=== PATIENT | male | born 1970 | race Caucasian/White ===

== ENCOUNTER 2023-08-07 11:25 | Inpatient (IN) | payer OTHER ==
[2023-08-07 11:46] VITALS: BMI 29.1
[2023-08-07] MEDS ORDERED: NICOTINE POLACRILEX 2 MG GUM BUC PRN (13:31)
[2023-08-07] MEDS ORDERED: BISMUTH SUBSALICYLATE 524 MG/30 ML PO PRN (13:31)
[2023-08-07] MEDS ORDERED: ACETAMINOPHEN 325 MG TABLET (FP) PO PRN (13:31)
[2023-08-07] MEDS ORDERED: BENZONATATE 200 MG CAPSULE PO PRN (13:31)
[2023-08-07] MEDS ORDERED: MAG HYDROX/AL HYDROX/SIMETH 30 ML UNIT-DOSE CUP PO PRN (13:31)
[2023-08-07] MEDS ORDERED: NALOXONE HCL 0.4 MG/ML VIAL IM PRN (13:31)
[2023-08-07] MEDS ORDERED: IBUPROFEN 600 MG TABLET (FP) PO PRN (13:31)
[2023-08-07] MEDS ORDERED: ONDANSETRON *ODT* 4 MG TABLET SL PRN (13:31)
[2023-08-07] MEDS ORDERED: MAGNESIUM HYDROX 2400MG/30ML ORAL SUSPENSION 30 ML CUP PO PRN (13:31)
[2023-08-07] MEDS ORDERED: BENZOCAINE/MENTHOL (CHLORASEPTIC ) LOZENGE MM PRN (13:31)
[2023-08-07] MEDS ORDERED: guaiFENesin 600 MG TABLET.ER (FP) PO PRN (13:31)
[2023-08-07] MEDS ORDERED: POLYETHYLENE GLYCOL (HEALTHYLAX) 3350 17 GM PACKET PO PRN (13:31)
[2023-08-07] MEDS ORDERED: LOPERAMIDE HCL 2 MG CAPSULE PO PRN (13:31)
[2023-08-07] MEDS ORDERED: NALOXONE HCL (KLOXXADO) 8 MG SPRAY NS PRN (13:31)
[2023-08-07] MEDS ORDERED: IBUPROFEN 400 MG TABLET (FP) PO PRN (13:31)
[2023-08-07] MEDS ORDERED: cloNIDine HCL 0.1 MG TABLET PO PRN (13:35)
[2023-08-07] MEDS ORDERED: methaDONE HCL 10 MG TABLET (FOR DETOX USE ONLY) PO ONE (14:15)
[2023-08-07] MEDS ORDERED: methaDONE HCL 10 MG TABLET (FOR DETOX USE ONLY) ONE (14:23)
[2023-08-07] MEDS: hydrOXYzine PAMOATE 25 MG CAPSULE (FP) PO PRN (17:24)
[2023-08-07] MEDS: THIAMINE HCL 100 MG TABLET (FP) PO SCH (22:25)
[2023-08-07] MEDS: MELATONIN 5 MG TABLETS PO SCH (22:26)
[2023-08-08] MEDS: PRENATAL VITAMINS W/ FOLIC ACID TABLET (FP) PO SCH (09:59)
[2023-08-08] MEDS: PANTOPRAZOLE 20 MG TABLET PO SCH (09:59)
[2023-08-08] MEDS: METHOCARBAMOL 500 MG TABLET PO PRN (09:59)
[2023-08-08] MEDS: THIAMINE HCL 100 MG TABLET (FP) PO SCH (22:30)
[2023-08-08] MEDS: diazePAM 5 MG TABLET PO PRN (22:32)
[2023-08-08] MEDS: MELATONIN 5 MG TABLETS PO SCH (22:33)
[2023-08-09] MEDS ORDERED: methaDONE HCL 10 MG TABLET (FOR DETOX USE ONLY) PO ONE (10:00)
[2023-08-09] MEDS: PRENATAL VITAMINS W/ FOLIC ACID TABLET (FP) PO SCH (10:06)
[2023-08-09] MEDS: hydrOXYzine PAMOATE 25 MG CAPSULE (FP) PO PRN ×2 (10:06→22:19)
[2023-08-09] MEDS: PANTOPRAZOLE 20 MG TABLET PO SCH (10:07)
[2023-08-09] MEDS: MELATONIN 5 MG TABLETS PO SCH (22:17)
[2023-08-09] MEDS: THIAMINE HCL 100 MG TABLET (FP) PO SCH (22:18)
[2023-08-09] MEDS: diazePAM 5 MG TABLET PO PRN (22:19)
[2023-08-10 10:24] LABS: HEMATOCRIT 46.3 % (35.4-49); HEMOGLOBIN 14.8 GM/dL (11.7-16.9); MCH 27.4 pg (25.7-33.7); MCHC 32.1 g/dl (32.0-35.9); MEAN CELL VOLUME 85.4 fl (80-96); MEAN PLT VOLUME 7.7 fl (7.5-11.1); PLATELET COUNT 362 10^3/uL (134-434); RBC 5.42 M/mm3 (4.00-5.60)
[2023-08-10] MEDS: PRENATAL VITAMINS W/ FOLIC ACID TABLET (FP) PO SCH (10:25)
[2023-08-10] MEDS: METHOCARBAMOL 500 MG TABLET PO PRN (10:25)
[2023-08-10] MEDS: PANTOPRAZOLE 20 MG TABLET PO SCH (10:25)
[2023-08-10 12:22] LABS: POTASSIUM 4.4 mmol/L (3.5-5.1)
[2023-08-10 12:31] LABS: CALCIUM 9.5 mg/dL (8.5-10.1)
[2023-08-10 12:32] LABS: ALBUMIN 3.8 g/dl (3.4-5.0); BLOOD UREA NITROGEN 11.3 mg/dL (7-18)
[2023-08-10 12:35] LABS: CREATININE 1.1 mg/dL (0.55-1.3)
[2023-08-10 12:36] LABS: BILIRUBIN,TOTAL 0.4 mg/dL (0.2-1)
[2023-08-10] MEDS: THIAMINE HCL 100 MG TABLET (FP) PO SCH (22:03)
[2023-08-10] MEDS: MELATONIN 5 MG TABLETS PO SCH (22:03)
[2023-08-10] MEDS: diazePAM 5 MG TABLET PO PRN (22:03)
[2023-08-11] MEDS: PRENATAL VITAMINS W/ FOLIC ACID TABLET (FP) PO SCH (09:35)
[2023-08-11] MEDS: hydrOXYzine PAMOATE 25 MG CAPSULE (FP) PO PRN ×2 (09:35→22:39)
[2023-08-11] MEDS: PANTOPRAZOLE 20 MG TABLET PO SCH (09:35)
[2023-08-11] MEDS ORDERED: methaDONE HCL 10 MG TABLET (FOR DETOX USE ONLY) PO ONE (10:00)
[2023-08-11] MEDS: THIAMINE HCL 100 MG TABLET (FP) PO SCH (22:38)
[2023-08-11] MEDS: MELATONIN 5 MG TABLETS PO SCH (22:38)
[2023-08-12] MEDS: PANTOPRAZOLE 20 MG TABLET PO SCH (09:15)
[2023-08-12] MEDS: PRENATAL VITAMINS W/ FOLIC ACID TABLET (FP) PO SCH (09:15)
[2023-08-12 09:36] VITALS: BP 117/69; PULSE 62; RESP 16; TEMP 97.5
== END 2023-08-12 09:26 | disposition home or self-care (01) | DRG 773 ==
LOC: YASAS 11:25 → Y6N 14:39
PROVIDERS: ADMIT Allergy & Immunology; ATTEND Surgery
PROC: HZ2ZZZZ Detoxification Services for Substance Abuse Treatment (ICD-10-PCS; principal; 2023-08-07)
DX: F11.23 Opioid dependence with withdrawal (principal); F14.20 Cocaine dependence, uncomplicated; F13.20 Sedative, hypnotic or anxiolytic dependence, uncomplicated; F17.210 Nicotine dependence, cigarettes, uncomplicated; K21.9 Gastro-esophageal reflux disease without esophagitis
CPT/HCPCS: 36415; 80053; 80307; 85027; 86780; 87635; 87811; 93005; 93010

== ENCOUNTER 2025-02-05 14:38 | Inpatient (IN) | payer OTHER ==
[2025-02-05 15:24] VITALS: BMI 31.3
[2025-02-05] MEDS ORDERED: BUPRENORPHINE HCL 150 MCG, BUPRENORPHINE HCL 75 MCG BC PRN (15:55)
[2025-02-05] MEDS ORDERED: MAGNESIUM HYDROX 2400MG/30ML ORAL SUSPENSION 30 ML CUP PO PRN (15:57)
[2025-02-05] MEDS ORDERED: LOPERAMIDE HCL 2 MG CAPSULE PO PRN (15:57)
[2025-02-05] MEDS ORDERED: POLYETHYLENE GLYCOL (HEALTHYLAX) 3350 17 GM PACKET PO PRN (15:57)
[2025-02-05] MEDS ORDERED: BENZONATATE 200 MG CAPSULE PO PRN (15:57)
[2025-02-05] MEDS ORDERED: BISMUTH SUBSALICYLATE 524 MG/30 ML PO PRN (15:57)
[2025-02-05] MEDS ORDERED: ONDANSETRON *ODT* 4 MG TABLET SL PRN (15:57)
[2025-02-05] MEDS ORDERED: guaiFENesin 600 MG TABLET.ER (FP) PO PRN (15:57)
[2025-02-05] MEDS ORDERED: DICYCLOMINE HCL 10 MG CAPSULE PO PRN (15:57)
[2025-02-05] MEDS ORDERED: IBUPROFEN 600 MG TABLET (FP) PO PRN (15:57)
[2025-02-05] MEDS ORDERED: BENZOCAINE/MENTHOL (CHLORASEPTIC ) LOZENGE MM PRN (15:57)
[2025-02-05] MEDS ORDERED: IBUPROFEN 400 MG TABLET (FP) PO PRN (15:57)
[2025-02-05] MEDS ORDERED: ACETAMINOPHEN 325 MG TABLET (FP) PO PRN (15:57)
[2025-02-05] MEDS ORDERED: NALOXONE (NARCAN) HCL 4 MG/0.1 ML SPRAY NS PRN (15:57)
[2025-02-05] MEDS ORDERED: BUPRENORPHINE HCL 75 MCG FILM BC ONE (18:27)
[2025-02-05] MEDS ORDERED: BUPRENORPHINE HCL 150 MCG FILM BC ONE (18:27)
[2025-02-05] MEDS ORDERED: cloNIDine HCL 0.1 MG TABLET ONE (18:28)
[2025-02-05] MEDS: cloNIDine HCL 0.1 MG TABLET PO ONE (18:37)
[2025-02-05] MEDS: BUPRENORPHINE HCL 150 MCG, BUPRENORPHINE HCL 75 MCG BC ONE (18:37)
[2025-02-05] MEDS ORDERED: cloNIDine HCL 0.1 MG TABLET PO PRN (19:56)
[2025-02-05] MEDS: MELATONIN 5 MG TABLETS PO SCH (22:22)
[2025-02-05] MEDS: diazePAM 5 MG TABLET PO PRN (22:22)
[2025-02-05] MEDS: THIAMINE 100 MG TABLET PO SCH (22:22)
[2025-02-06] MEDS ORDERED: BUPRENORPHINE HCL 150 MCG, BUPRENORPHINE HCL 75 MCG BC PRN
[2025-02-06] MEDS: BUPRENORPHINE HCL 150 MCG, BUPRENORPHINE HCL 75 MCG BC SCH (06:21)
[2025-02-06] MEDS: MAG HYDROX/AL HYDROX/SIMETH 30 ML UNIT-DOSE CUP PO PRN (06:25)
[2025-02-06] MEDS: PANTOPRAZOLE 20 MG TABLET PO SCH (07:02)
[2025-02-06] MEDS: PRENATAL VITAMINS W/ FOLIC ACID TABLET (FP) PO SCH (10:20)
[2025-02-06 11:25] LABS: HEMATOCRIT 42.4 % (40.1-51.0); HEMOGLOBIN 13.1 g/dL (13.7-17.5); MCHC 30.9 g/dl (32.3-36.5); MEAN PLT VOLUME 9.5 fl (9.4-12.4); PLATELET COUNT 294 x10^3/uL (163-337); RDW 14.1 % (12.2-16.1)
[2025-02-06 13:30] LABS: CHLORIDE 107 mmol/L (98-107); POTASSIUM 5.1 mmol/L (3.5-5.1); SODIUM 142 mmol/L (136-145)
[2025-02-06 13:36] LABS: CALCIUM 9.4 mg/dL (8.5-10.1)
[2025-02-06 13:37] LABS: ALBUMIN 3.3 g/dl (3.4-5.0); ANION GAP 3 mmol/L (4-13); BLOOD UREA NITROGEN 14.6 mg/dL (7-18); CO2 32 mmol/L (21-32); GLUCOSE,RANDOM 106 mg/dL (74-106); SGPT/ALT 24 U/L (13-61)
[2025-02-06 13:38] LABS: SGOT/AST 14 U/L (15-37)
[2025-02-06 13:39] LABS: BILIRUBIN,TOTAL 0.3 mg/dL (0.2-1); CREATININE 1.1 mg/dL (0.55-1.3); TOT PROT 6.2 g/dl (6.4-8.2)
[2025-02-06 13:40] LABS: ALK PHOS 119 U/L (45-117)
[2025-02-06] MEDS: hydrOXYzine PAMOATE 25 MG CAPSULE (FP) PO PRN (22:30)
[2025-02-07] MEDS: BUPRENORPHINE HCL 450 MCG FILM BC SCH (05:57)
[2025-02-07] MEDS: METHOCARBAMOL 500 MG TABLET PO PRN (22:52)
[2025-02-08] MEDS: BUPRENORPHINE/NALOXONE 4 MG/1 MG FILM PACKET SL SCH (06:14)
[2025-02-09 05:55] VITALS: RESP 16
[2025-02-09] MEDS: BUPRENORPHINE/NALOXONE 8 MG/2 MG FILM PACKET SL ONE (06:02)
[2025-02-09 09:09] VITALS: BP 107/67; PULSE 60; TEMP 97.8
== END 2025-02-09 10:21 | disposition home or self-care (01) | DRG 773 ==
LOC: YASAS 14:38 → Y3N 18:22
PROVIDERS: ADMIT Allergy & Immunology; ATTEND Allergy & Immunology
PROC: HZ2ZZZZ Detoxification Services for Substance Abuse Treatment (ICD-10-PCS; principal; 2025-02-05)
DX: F11.23 Opioid dependence with withdrawal (principal); F10.20 Alcohol dependence, uncomplicated; F14.20 Cocaine dependence, uncomplicated; F12.20 Cannabis dependence, uncomplicated; F17.210 Nicotine dependence, cigarettes, uncomplicated; K21.9 Gastro-esophageal reflux disease without esophagitis; Z59.02 Unsheltered homelessness
CPT/HCPCS: 36415; 80053; 80305; 80307; 85027; 86780; 93005; 93010